=== PATIENT | female | born 1975 | race Caucasian/White ===

== ENCOUNTER 2023-07-15 09:47 | Outpatient (REF) | payer BC, SELFPAY ==
--- NOTE | ~2023-07-15 | XR_ITS ---
EXAMINATION: XR LUMBOSACRAL SPINE WITH OBLIQUES CLINICAL INFORMATION: Disc displacement COMPARISON: None available. TECHNIQUE: 4 views of the lumbar spine were obtained. FINDINGS: 5 nonrib-bearing lumbar vertebral bodies are visualized. Alignment is within normal limits. There is no change in alignment with flexion or extension positioning. Lumbar vertebral body heights are maintained. There is mild to moderate narrowing of the L5/S1 disc space height. Surgical clips in the upper abdomen suggesting prior cholecystectomy. XR/XR lumbar spine 4V min IMPRESSION: Mild degenerative changes of the lower lumbar spine. No radiographic evidence of instability.
== END 2023-07-15 09:48 | disposition home or self-care (01) ==
LOC: HO.HOSX 09:47
PROVIDERS: PCP Nurse Practitioner Family; Visit Provider Physician Assistant
DX: M51.26 Other intervertebral disc displacement, lumbar region (principal)
CPT/HCPCS: 72110

== ENCOUNTER 2023-07-15 09:47 | Outpatient (AMB) | payer BC, SELFPAY ==
--- NOTE | 2023-07-15 09:55 | HO.SPINEOV ---
Intake Intake Visit Reasons: sciatica Intake Note: Mrs. Manjarrez is here today c/o sciatica pain. MRI done @ [facility]. Ward Service Supervisor Required: No Assessment & Plan Assessment & Plan (1) Lumbar disc herniation: Code(s): M51.26 - Other intervertebral disc displacement, lumbar region Plan Dear Becky, Thank you for referring Mrs Manjarrez to our office today. She is a very nice 47-year-old female who has had some on and off back issues for a number of years but sometime over the summer began experiencing discomfort that served radiating down her left leg into her buttock, lateral thigh into her calf and foot. She started to get numbness as well and has developed some weakness. She underwent a series of conservative treatments including physical therapy as well as cortisone injections at the L5 nerve as well as an epidural. Unfortunately these things did not help with any of her symptoms. The pain has steadily increased and at this point she has plateaued to a level where she is in constant discomfort throughout the day. Sitting or standing for any length of time makes things worse. Interestingly if she gets up and moves around she can make it a little bit better. She was taking significant amounts of ibuprofen but has recently stopped that because she was concerned about the side effects. She has started to notice a slight amount of discomfort on the right side but primarily her symptoms are on the left. She underwent an MRI at [facility] showing disc herniation on the left at L4-5 and was referred to us for evaluation. 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 She has intact reflexes at the patella and the Achilles. Rest of her examination is normal. Imaging review: Lumbar MRI done at [facility] in May 2023 shows that she has a broad-based left-sided disc herniation compressing the left L5 nerve root. Alignment is otherwise okay. There is some mild degeneration above at L3-4. Impression: This is a 47-year-old female who presents with 4-5 months of progressive left-sided leg pain going down into her foot with weakness of her dorsiflexion and extensor hallucis longus with failure of conservative treatment and what looks like a disc herniation on the left at L4-5. The radiologist reports that there may be a cyst inside the disc material, but I suspect that is just a soft piece of disc material that we are seeing. We briefly discussed the option of a left L4-5 microdiskectomy. We discussed risks benefits etc.. We also discussed recovery from surgery. I am going to review her imaging with Dr. Walter and call the patient back with final surgical plans. I did send her for flexion-extension x-rays just as a precaution to rule out segmental instability. Thank you for allowing us to care for your patient. The total time spent with this visit with this patient was 45 minutes reviewing history, physical exam, lumbar imaging review, and implementation of treatment plan or further diagnostic testing El Walter MD,PhD [facility] Orders: Orders XR lumbar spine 4V min Today M51.26 - Other intervertebral disc displacement, lumbar region Coding Level of Care Code New Pt Level 4 (72579) Diagnoses Lumbar disc herniation M51.26
== END 2023-07-15 10:46 | disposition home or self-care (01) ==
PROVIDERS: PCP Nurse Practitioner Family; Referring Provider Nurse Practitioner Family; Visit Provider Physician Assistant
DX: M51.26 Other intervertebral disc displacement, lumbar region (principal)
CPT/HCPCS: 99204

== ENCOUNTER 2023-10-06 07:10 | Day surgery (SDC) | payer BC, SELFPAY ==
[2023-09-22 12:39] VITALS: BMI 25.2
--- NOTE | 2023-10-05 09:34 | P.CONAN_ITS ---
Documented by User: Abigail Shin NP 10/05/23 09:37 HPI - Anesthesia Eval Consult details Narrative: 48yo F for Left L4-5 Microlumbar Decompression Cardiac cleared (strong family hx of CAD) [facility] Active Problems Active Problems: All Active Problems (Updated 09/22/23 @ 12:38 by Cecelia Sims RN) Lumbar disc herniation (Acute) Past Medical History Medical History Post-operative nausea and vomiting Family history of cardiovascular disease Chronic low back pain Murmur Endometriosis DDD (degenerative disc disease), lumbar GERD (gastroesophageal reflux disease) MARGARITA (generalized anxiety disorder) Surgical History Surgical History H/O colonoscopy History of esophagogastroduodenoscopy (EGD) Hx of laparoscopy Hx laparoscopic cholecystectomy History of Problems with Anesthesia: Yes (PONV) Social History Social History Are you a primary geriatric personal care aide to a significant other at home: No Do you presently have visiting nurse or other home services: No Patient Tobacco Use Status: Never used Tobacco Use of substances other than those prescribed or required for medical reasons: No Have you been hit, kicked, punched, or otherwise hurt by someone within the past year? If so, by whom?: No Are you DNR?: No Advance Directives: No Advance Directives Information Provided: Yes Advance Directives on File: No Recently lost weight without trying: No Eating poorly because of decreased appetite: No Nutrition Risks: No Nutritional Risk Patient : No : No Poor oral hygiene: No Meds Allergies Allergy/AdvReac Type Severity Reaction Status Date / Time animal dander Allergy Intermediate itching/nasal Verified 09/22/23 12:38 congestion dust Allergy Intermediate itching/nasal Uncoded 09/22/23 12:38 congestion Home Medications Medication Instructions Recorded Confirmed Last Taken Type ferrous sulfate 325 mg (65 mg 325 mg PO QAM 09/21/23 10/06/23 Unknown History iron) tablet lorazepam 1 mg tablet (Ativan) 1 mg PO DAILY PRN Anxiety 09/21/23 10/06/23 10/06/23 06:30 History multivitamin 1 tab PO QAM 09/21/23 10/06/23 Unknown History buspirone 5 mg tablet 5 mg PO 10/06/23 Unknown History Exam Height,Weight and Vital Signs: Height 5 ft 2.5 in Weight 63.503 kg Pertinent Lab Results Pertinent Lab Results: CBC and CMP 06/2023 at [facility] Narrative Narrative: EKG 09/12/23 NSR @67 Assessment and Plan Assessment Anesthesia Assessment: Chart Reviewed Final Anesthetic Review History of Problems with Anesthesia: Yes (PONV) Documented by User: Nati Connell MD 10/06/23 07:48 PMFSH Past Medical History Medical History Post-operative nausea and vomiting Family history of cardiovascular disease Chronic low back pain Murmur Endometriosis DDD (degenerative disc disease), lumbar GERD (gastroesophageal reflux disease) MARGARITA (generalized anxiety disorder) Family History Family history of problems with anesthesia: No Surgical History Surgical History H/O colonoscopy History of esophagogastroduodenoscopy (EGD) Hx of laparoscopy Hx laparoscopic cholecystectomy History of Problems with Anesthesia: No (PONV) Social History Social History Are you a primary geriatric personal care aide to a significant other at home: No Do you presently have visiting nurse or other home services: No Patient Tobacco Use Status: Never used Tobacco Use of substances other than those prescribed or required for medical reasons: No Have you been hit, kicked, punched, or otherwise hurt by someone within the past year? If so, by whom?: No Are you DNR?: No Advance Directives: No Advance Directives Information Provided: Yes Advance Directives on File: No Recently lost weight without trying: No Eating poorly because of decreased appetite: No Nutrition Risks: No Nutritional Risk Patient : No : No Poor oral hygiene: No Meds Allergies Allergy/AdvReac Type Severity Reaction Status Date / Time animal dander Allergy Intermediate itching/nasal Verified 09/22/23 12:38 congestion dust Allergy Intermediate itching/nasal Uncoded 09/22/23 12:38 congestion Home Medications Medication Instructions Recorded Confirmed Last Taken Type ferrous sulfate 325 mg (65 mg 325 mg PO QAM 09/21/23 10/06/23 Unknown History iron) tablet lorazepam 1 mg tablet (Ativan) 1 mg PO DAILY PRN Anxiety 09/21/23 10/06/23 10/06/23 06:30 History multivitamin 1 tab PO QAM 09/21/23 10/06/23 Unknown History buspirone 5 mg tablet 5 mg PO 10/06/23 Unknown History Exam Airway Mallampati Class: II TM Dist: >3cm Neck ROM: Full Heart: rrr Lungs: cta Assessment and Plan Assessment Anesthesia Assessment: Anesthesia Plan Discussed Final Anesthetic Review Family History of Problems with Anesthesia: No History of Problems with Anesthesia: No (PONV) NPO: Yes ASA Class: II Final Preanesthetic Review: No Changes in Pt Med Stat, Meds/Allgs Chart Reviewed, Consent Obtained/Reviewed and Anes Risks/Benef Reviewed Patient Risk: Low Procedure Risk: Intermediate Anesthetic Plan Anesthetic Plan: GA Disposition: Standard PACU
[2023-10-06] VITALS (13 sets, daily range): BP systolic 112–130; BP diastolic 63–79; PULSE 69–86; RESP 14–20; TEMP 36.1–37.1; O2SAT 99–100; BMI 25.2
--- NOTE | ~2023-10-06 | FL_ITS ---
CLINICAL INDICATION: Back pain. FINDINGS: Technical assistance and equipment were provided by the Department of Radiology during intraoperative fluoroscopy for L4-L5 microlumbar decompression. 1, limited fluoroscopic spot image is submitted. A radiologist was not present during the procedure. The image demonstrates a surgical device just posterior to L4-L5. The image is available for review on PACS. TOTAL FLUOROSCOPY TIME: 0 minutes. DOSE AREA PRODUCT: 0.3 Gy-cm2 (ness-centimeter squared) FL/FL guidance in OR IMPRESSION: Technical assistance and equipment provided by the Department of Radiology during intraoperative fluoroscopy, as above. Please see operative report for further details.
--- NOTE | 2023-10-06 07:22 | MHC.SHP ---
Pre-Procedural Eval Section A - 24 Hr Update-Section A only Date of Service: 10/06/23 The patient is an INPATIENT: No Changes since office visit: No Cold of Flu in the past 2 weeks, No New Medical Problems, No Changes in Medication and No Patient answered all questions The patient has been examined within 24 hours of the surgical procedure. The History & Physical has been completed within 30 days and I have reviewed it.: No Section B - Complete if H&P > 30 days Chief Complaint: Other intervertebral disc displacement, lumbar reg Allergies: Allergies Allergy/AdvReac Type Severity Reaction Status Date / Time animal dander Allergy Intermediate itching/nasal Verified 09/22/23 12:38 congestion dust Allergy Intermediate itching/nasal Uncoded 09/22/23 12:38 congestion Review of Systems Sugical H&P ROS: Negative: Constitution, Cardiovascular, Respiratory, Neurological, Psychiatric, Hem-Onc, Allergic/Immunologic, Gastrointestinal, Genitourinary, Musculoskeletal, Integumentary, Endocrine and Eyes/Ears/Nose/Throat Exam Surgical H&P Exam: Not Evaluated: HEENT, Not Evaluated: Heart, Not Evaluated: Lungs, Not Evaluated: Extremities, Not Evaluated: Abdomen, Not Evaluated: Skin and Not Evaluated: Neurological Plan Diagnosis/Plan: Unchanged Left L4-5 microdiskectomy Time Spent With Patient Time: Total time managing care of this patient today _6___ minutes.
[2023-10-06 07:36] LABS: UPreg QC Valid YES; Urine Pregnancy NEGATIVE (NEGATIVE)
[2023-10-06] MEDS: Scopolamine 1.5 MG PATCH.TD.3 TRANSDERMA (07:39)
[2023-10-06] MEDS: methocarbamoL 750 MG TABLET PO (07:41)
[2023-10-06] MEDS: Gabapentin 300 MG CAPSULE PO (07:41)
[2023-10-06] MEDS: Lactated Ringers 1,000 ML 100 ML IVCONT (08:09)
--- NOTE | 2023-10-06 09:41 | P.OP_ITS ---
Operative Note Operative Note Date of Service: 10/06/23 Narrative: Preoperative diagnosis: Left L5 lumbar radiculopathy due to disc herniation Postoperative diagnosis: Same Procedure: L4-5 lumbar microdiskectomy with microscope Surgeon: Devin Walter MD, PhD Field Service Technician Poultry: masood Casey This 48-year-old female is suffering from a left lumbar radiculopathy. An MRI shows a small disc herniation compressing the left L5 nerve root. The patient was offered a lumbar microdiskectomy to decompress the nerve root. The procedure complications were explained. The patient was consented. The patient was brought to the operating room and endotracheally intubated. The patient was turned in a prone position on the Victorino frame. Prepping and draping was done followed by time-out. A mid lumbar incision was made followed by release of the paravertebral muscles on the left side to expose the L4-5 interspace. An intraoperative x-rays obtained to confirm the correct level. The microscope was brought in. A L4 laminotomy was done followed by opening of the flavum ligament. The L5 nerve root was identified and retracted medially to expose the L4-5 disc space. I could palpate a disc bulge medial from the L5 nerve root. An annulotomy was done and with a nerve hook I tried to express disc herniation but no significant herniation was present. The good news was that the nerve root was pulsating as a sign of good decompression. The microscope was removed. Marcaine was injected intramuscularly.The incision was closed in two layers. Steri-Strips used to approximate seizure. An op-site were taken there was used to cover the incision. All sponge and needle counts were correct. Patient was extubated and transported in stable condition to recovery room. this procedure was done with the aid of a physician administrative assistant receptionist who performed the initial exposure until the microscope was brought in and performed the closure of the incision. Anesthesia: General Blood loss: 10 mL Complications: None Specimen: None Surgical time: Disposition: Discharge home
--- NOTE | 2023-10-06 09:45 | PM.DS ---
DS: Providers Provider Date of Service: 10/06/23 Date of discharge: 10/06/23 Primary care physician: Cherrie Kuhn CNP Admitting clinician: Devin Walter DS: Diagnosis Discharge Diagnosis (1) Lumbar disc herniation: Status: Acute DS: Summary Time Attestation Discharge coordination time: Less than 30 minutes Quality: Safe Use of Opioids Does Pt have an Active Cancer Diagnosis on the Problem List?: No Quality: Stroke Does the patient have a stroke diagnosis?: No Physical Exam Vital Signs: Vital Signs: Last Vital Signs Temp 98.7 F 10/06/23 07:55 Pulse 85 10/06/23 07:55 Resp 16 10/06/23 07:55 BP 128/67 10/06/23 07:55 Pulse Ox 100 10/06/23 07:55 O2 Del Method Room Air 10/06/23 07:55 BMI result Body Mass Index 25.2 DS: Data Data Completed and Pending Labs on day of discharge: Laboratory Results - last 24 hr 10/06/23 07:25 Urine Test NEGATIVE Discharge Plan Discharge Patient Disposition: Home, Self-Care Referrals: Cherrie Shcultz CNP [Primary Care Provider] - 1 Week Discharge Medications: New oxycodone 5 mg tablet 5 mg PO Q4H PRN (Reason: pain) Qty: 20 0RF Rx Instructions: Partial Fill upon patient request. docusate sodium [Colace] 100 mg capsule 100 mg PO BID Qty: 20 0RF Continued multivitamin Tablet 1 tab PO QAM ferrous sulfate 325 mg (65 mg iron) Tablet 325 mg PO QAM lorazepam [Ativan] 1 mg Tablet 1 mg PO DAILY PRN (Reason: Anxiety) buspirone 5 mg tablet 5 mg PO Discharge Orders: Discharge Order (Routine); Ordered 10/06/23 Ordered By: El Mcleod Diet: Advance to usual diet Activity on Discharge: As tolerated Activity Restrictions/Additional Instructions: After your spinal surgery we ask you to observe the following restrictions/guidelines: Activity: It is normal to feel some discomfort as you increase your activity, but that will improve with time. We ask you avoid heavy lifting or acitivities that cause pain. As a general rule, 8lbs is a safe limit for lifting right after surgery. Walk as much as you feel comfortable but not to exhaustion. You will feel extra tired the first few days after surgery. Stay well hydrated. It is OK to walk up and down stairs You may return to driving when you are off narcotics (such as vicodin, oxycodone, dilaudid, etc), and you are back to normal functional capacity. If you have any concerns please check with office before driving. Return to work is specific to each patient and each surgery, so please speak with your doctor/PA at first follow up. Please bring paperwork such as FMLA at that time if you need it filled out. Medications: For optimum pain control, it is best to start with a combination of 500 mg of Tylenol every 4 hours with 600 mg of Motrin every 8 hours, and use narcotics as needed in between for breakthrough pain. We will give you a short supply of narcotics after surgery (usually one weeks worth). If you need more please call the office but do not use more than prescribed. You will need to give our office 48 hours notice if you need narcotics refilled and we do not fill narcotics on weekends or evenings. If you are on a narcotic, it is a good idea to take a stool softener such as colace or senna to avoid constipation If you take blood thinner such as aspirin, Plavix, Coumadin, Effient, Eliquis etc for conditions such as Afib, DVT, Pulmonary embolus, coronary disease, stents etc please speak with your surgeon about specific details as to when you can resume these medications. You can resume NSAIDs on post op day 1 (eg: Motrin, Naproxen, etc). Follow up: Please call the office, , after surgery to arrange a 3 week follow up for wound check. Wound Care: You may remove your dressing on the first day after surgery. ?You may ?leave open to air. Please do not remove the steri strips underneath. they will fall off on their own in one week. IT IS NORMAL FOR THE WOUND TO OOZE OR BE BLOODY FOR A FEW DAYS AFTER SURGERY. ?IF THIS HAPPENS JUST PLACE NEW DRESSING OVER IT TO AVOID STAINING CLOTHES. You may shower on post op day # 1 We ask that you do not let the water soak the wound. If it does get wet, just towel dry lightly. Please do not scrub your incision or place any type of chemical/ointment on the wound. No tub baths, pools or jacuzzis for one month. If you have any leaking or redness from your wound, or fevers, please call office
[2023-10-06] MEDS: ondansetron HCL 4 MG/2 ML VIAL IVPUSH (10:44)
[2023-10-06] MEDS: HYDROmorphone HCl 0.5 MG/0.5 ML SYRINGE 0.25 MG IVPUSH ×2 (10:45→11:20)
[2023-10-06] MEDS: oxyCODONE HCl Immed Release 5 MG TABLET PO (11:10)
== END 2023-10-06 12:22 | disposition home or self-care (01) ==
PROVIDERS: Nurse Practitioner; PCP Nurse Practitioner Family; Visit Provider Neurological Surgery
PROC: (CPT 63030; principal; 2023-10-06 09:50)
DX: M51.26 Other intervertebral disc displacement, lumbar region (principal); G89.29 Other chronic pain; M51.36 Other intervertebral disc degeneration, lumbar region; M79.605 Pain in left leg; M79.672 Pain in left foot; Z79.1 Long term (current) use of non-steroidal anti-inflammatories (NSAID); Z79.899 Other long term (current) drug therapy
CPT/HCPCS: 63030; 81025; J0131; J0690; J1100; J1170; J1885; J2250; J2405; J2704; J3010

== ENCOUNTER → 2023-10-06 07:10 | Outpatient (BNV) | payer BC, SELFPAY | PROVIDERS: PCP Nurse Practitioner Family; Visit Provider Neurological Surgery | DX: M51.26 Other intervertebral disc displacement, lumbar region (principal) | CPT/HCPCS: 63030; 99499 ==

== ENCOUNTER 2023-10-27 15:12 | Outpatient (AMB) | payer BC, SELFPAY ==
--- NOTE | 2023-10-27 15:40 | A.SPINEOV_ITS ---
Intake Intake Visit Reasons: 1st post op Intake Note: Ms. Manjarrez is here today for 1st post op. Air Cargo Specialist Required: No Allergies animal dander Allergy (Intermediate, Verified 09/22/23 12:38) itching/nasal congestion dust Allergy (Intermediate, Uncoded 09/22/23 12:38) itching/nasal congestion Do you need a note to return to daycare/school/sports/work: No Assessment & Plan Assessment & Plan (1) Lumbar disc herniation: Code(s): M51.26 - Other intervertebral disc displacement, lumbar region Plan Mrs Manjarrez is 3 weeks out from her left L4-5 microdiskectomy. Thankfully the very hyperintense pain that she had right after surgery is slightly better but she still continuing to take ibuprofen as well as gabapentin in the evenings for persistent left leg pain going down into her foot. His the exact same pain that she had before surgery. Unfortunately she never really had a significant period of time postoperatively without the pain. Our concern has been that she could have reherniated the disc. An alternate explanation is that there was pre-existing damage from the original disc herniation and that the pain she is currently feeling is just residual from that. Only time will tell in this case. If she has no better in 3 weeks however we will obtain a new MRI to evaluate for recurrent herniated disc. Her wound is healing well. We did discuss activity got lines, restrictions and expectations after lumbar microdiskectomy. El Walter MD, PhD [facility] [place] [facility] Coding Level of Care Code Global (28576) Diagnoses Lumbar disc herniation M51.26
== END 2023-10-27 15:58 | disposition home or self-care (01) ==
PROVIDERS: PCP Nurse Practitioner Family; Visit Provider Physician Assistant
DX: M51.26 Other intervertebral disc displacement, lumbar region (principal)
CPT/HCPCS: 99024

== ENCOUNTER → 2023-10-27 15:12 | Outpatient (BNVA) | payer BC, SELFPAY | PROVIDERS: PCP Nurse Practitioner Family; Visit Provider Physician Assistant ==